=== PATIENT | female | born 1945 | race Caucasian/White ===

== ENCOUNTER 2018-07-11 09:48 | Emergency (ER) | payer MEDICARE, OTHER ==
[~2018-07-11] VITALS: Ht 167.6 cm; Wt 86.2 kg
[2018-07-11] MEDS ORDERED: LOSA25 PO (10:03)
[2018-07-11] MEDS ORDERED: METO25 PO (10:03)
[2018-07-11] MEDS ORDERED: Percocet 5-3251 EACH PO (14:42)
== END 2018-07-11 15:01 | disposition home or self-care (01) ==
LOC: ER 09:48
DX: S82.842A Displaced bimalleolar fracture of left lower leg, initial encounter for closed fracture (principal); W10.9XXA Fall (on) (from) unspecified stairs and steps, initial encounter; I10 Essential (primary) hypertension; Z88.2 Allergy status to sulfonamides; Z79.899 Other long term (current) drug therapy
CPT/HCPCS: 27810; 73590; 73600; 73610; 76000; 93005; 93010; 96374; 99152; 99284-25; J1170; J7030

== ENCOUNTER 2020-02-09 02:00 | Emergency (ER) | payer MEDICARE, OTHER ==
[~2020-02-09] VITALS: Ht 162.6 cm; Wt 90.7 kg
[~2020-02-09 02:00] MED LIST: LOSA25 PO; METO25 PO; Percocet 5-3251 EACH PO
[2020-02-09 02:41] LABS: Alanine Aminotransfer (ALT/SGP 30 U/L (12-78); Albumin/Globulin Ratio 1.2 (0.8-1.8); Alk Phos 77 U/L (50-136); Anion Gap 6 mmol/L (6-16); Aspartate Aminotrans (AST/SGOT 24 U/L (12-37); Bilirubin, Total 0.3 mg/dL (0.1-1.0); Blood Urea Nitrogen 20 mg/dL (8-24); Bun/Creatinine Ratio 34.2 (12.0-20.0); CO2, Blood 26 mmol/L (21-32); Calcium, Blood 9.7 mg/dL (8.5-10.1); Chloride, Blood 109 mmol/L (98-108); Creatinine, Blood 0.59 mg/dL (0.40-1.00); Globulin, Blood 3.4 g/dL (2.2-4.0); Glomerular Filtration Rate >60 (60-); Glucose, Blood 129 mg/dL (70-99); Potassium, Blood 4.2 mmol/L (3.5-5.5); Sodium, Blood 141 mmol/L (136-145); Total Protein, Blood 7.4 g/dL (6.4-8.2); Troponin I <0.015 ng/mL (0.000-0.040)
[2020-02-09 03:09] LABS: BASOPHILS ABSOLUTE AUTO 0.04 K/mm3 (0.00-0.23); BASOPHILS PERCENT AUTO 1 % (0-2); EOSINOPHILS ABSOLUTE AUTO 0.13 K/mm3 (0.00-0.68); EOSINOPHILS PERCENT AUTO 2 % (0-6); Hematocrit 41.6 % (33.0-51.0); Hemoglobin 13.4 g/dL (11.5-16.0); IMMATURE GRAN ABSOLUTE AUTO 0.02 K/mm3 (0.00-0.10); IMMATURE GRAN PERCENT AUTO 0 % (0-1); LYMPHOCYTES ABSOLUTE AUTO 1.51 K/mm3 (0.84-5.20); LYMPHOCYTES PERCENT AUTO 17 % (21-46); MONOCYTES ABSOLUTE AUTO 0.43 K/mm3 (0.16-1.47); MONOCYTES PERCENT AUTO 5 % (4-13); Mean Corpuscular HGB Conc 32.2 g/dL (31.5-36.5); Mean Corpuscular Volume 93 fL (80-100); Mean Platelet Volume 9.6 fL (9.1-12.4); NEUTROPHILS ABSOLUTE AUTO 6.55 K/mm3 (1.96-9.15); NEUTROPHILS PERCENT AUTO 75 % (41-73); Platelet Count 301 K/mm3 (150-400); RDW Coefficient Variation 12.5 % (11.7-14.2); RDW Standard Deviation 43.3 fL (35.1-46.3); Red Blood Cell Count 4.46 M/mm3 (3.80-5.20); White Blood Cell Count 8.68 K/mm3 (4.00-11.30)
== END 2020-02-09 03:49 | disposition home or self-care (01) ==
LOC: ER 02:00
PROVIDERS: Emergency Medicine
DX: I10 Essential (primary) hypertension (principal); Z88.2 Allergy status to sulfonamides; Z79.899 Other long term (current) drug therapy
CPT/HCPCS: 36415; 80053; 83690; 84484; 85025; 93005; 93010; 99283-25; A9270-GY

== ENCOUNTER 2020-04-13 09:40 | Observation (INO) | payer MEDICARE, OTHER ==
[~2020-04-13] VITALS: Ht 162.6 cm; Wt 88.5 kg
[2020-04-13 10:23] LABS: BASOPHILS ABSOLUTE AUTO 0.04 K/mm3 (0.00-0.23); BASOPHILS PERCENT AUTO 1 % (0-2); EOSINOPHILS ABSOLUTE AUTO 0.22 K/mm3 (0.00-0.68); EOSINOPHILS PERCENT AUTO 4 % (0-6); Hematocrit 43.8 % (33.0-51.0); IMMATURE GRAN ABSOLUTE AUTO 0.01 K/mm3 (0.00-0.10); IMMATURE GRAN PERCENT AUTO 0 % (0-1); LYMPHOCYTES ABSOLUTE AUTO 1.43 K/mm3 (0.84-5.20); LYMPHOCYTES PERCENT AUTO 25 % (21-46); MONOCYTES ABSOLUTE AUTO 0.44 K/mm3 (0.16-1.47); MONOCYTES PERCENT AUTO 8 % (4-13); Mean Corpuscular HGB 29.7 pg (26.0-34.0); Mean Corpuscular Volume 93 fL (80-100); Mean Platelet Volume 9.7 fL (9.1-12.4); NEUTROPHILS ABSOLUTE AUTO 3.48 K/mm3 (1.96-9.15); NEUTROPHILS PERCENT AUTO 62 % (41-73); Platelet Count 288 K/mm3 (150-400); Red Blood Cell Count 4.72 M/mm3 (3.80-5.20); White Blood Cell Count 5.62 K/mm3 (4.00-11.30)
[2020-04-13 10:40] LABS: Alanine Aminotransfer (ALT/SGP 33 U/L (12-78); Albumin, Blood 3.7 g/dL (3.4-5.0); Albumin/Globulin Ratio 1.1 (0.8-1.8); Alk Phos 79 U/L (50-136); Anion Gap 5 mmol/L (6-16); Aspartate Aminotrans (AST/SGOT 25 U/L (12-37); Bilirubin, Total 0.6 mg/dL (0.1-1.0); Blood Urea Nitrogen 18 mg/dL (8-24); Bun/Creatinine Ratio 28.3 (12.0-20.0); CO2, Blood 25 mmol/L (21-32); Chloride, Blood 107 mmol/L (98-108); Creatinine, Blood 0.64 mg/dL (0.40-1.00); Globulin, Blood 3.4 g/dL (2.2-4.0); Glomerular Filtration Rate >60 (60-); Glucose, Blood 124 mg/dL (70-99); Potassium, Blood 4.1 mmol/L (3.5-5.5); Sodium, Blood 137 mmol/L (136-145); Total Protein, Blood 7.1 g/dL (6.4-8.2); Troponin I <0.015 ng/mL (0.000-0.040)
[2020-04-13] MEDS ORDERED: EZETIMIBE10 MG PO (12:47)
[2020-04-13] MEDS ORDERED: ROSU5 PO (12:47)
[2020-04-13 13:06] LABS: CHOL/HDL RATIO 3.5; Cholesterol 163 mg/dL (50-200); HDL Cholesterol 47 mg/dL (>39); LDL/HDL RATIO 2.2; Low Density Lipoprotein Chol 104 mg/dL (0-110); Triglycerides 58 mg/dL (30-160); Very Low Density Lipoprot Chol 11 mg/dL (6-32)
--- NOTE | 2020-04-13 15:42 | NUR ---
PATIENT ORIENTED TO ROOM. ASSUMING CAERE OF PATIENT
--- NOTE | 2020-04-13 18:02 | NUR ---
PATIENT IS ALERT AND ORIENTED AND COOPERATIVE WITH CARE. NO CONPLAINTS OF CHEST PAIN SINCE ON MEDICAL FLOOR. PATIENT COMPLAINED OF A 2/10 HEADACHE, TREATED PER EMAR. TELE IS NSR AT 67 BPM. BP ON ARRIVAL WAS 157/70. NO NEW CONCERNS. PATIENT IS EATING HER DINNER AT THIS TIME. WILL CONTINUE TO MONITOR.
--- NOTE | 2020-04-14 05:56 | NUR ---
SHIFT SUMMARY A/O, ABLE TO MAKE NEEDS KNOWN. COOPERATIVE WITH CARE. CALLS AND ANSWERS QUESTIONS APPROPRIATELY. C/O HEADACHE THAT WAS NOTED TO BE PREDOMINATELY AT BACK OF NECK; RATED PAIN 4/10; MEDICATED PER EMAR. ALSO STATED FELT SHAKY AND THOUGHT THAT BP WAS ELEVATED AFTER RETURNING FROM BATHROOM. CHECKED AND RE-CHECKED VS DURING THIS TIME. BP ELEVATED X5 MINUTES AFTER RETURNING FROM BATHROOM. AT RE-CHECK BP SIGNIFICANTLY DOWN. STATED FOR THE PAST COUPLE OF MONTHS HAS HAD A DEEPER NAGGING DULL PAIN TO L NECK WHICH CONCERNS HER. TELE REMAINED NSR IN 70'S. APPEARED TO REST OFF AND ON. NO OTHER ACUTE CHANGES NOTED. BED REMAIN IN LOWEST POSITION. CALL LIGHT AND BELONGINGS WITHIN REACH. WCTM. REPORT TO ONCPARDEEP SANTANA.
[2020-04-14] MEDS ORDERED: METO25 PO (11:04)
[2020-04-14] MEDS ORDERED: ASPI81CH PO (11:05)
[2020-04-14] MEDS ORDERED: METFORMIN HCL500 MG PO (11:06)
[2020-04-14] MEDS ORDERED: NITR.6SL SL (11:07)
--- NOTE | 2020-04-14 11:42 | NUR ---
1125 PT TO DISCHARGE HOME. IV REMOVED PRIOR TO AND NO SS OF INFECTION NOTED. PT DRESSED HERSELF. NURSE EDUCATED PT REGARDING NEW MEDS. MEDS FAXED TO [facility] PER PT. PT HAS PCP AND LEGAL PRACTICE MANAGER OUT OF THE AREA. THIS NURSE ENCOURAGED PT TO FOLLOW UP WITH BOTH. PT WAS WHEELED OUT AND TOOK PT HOME.
== END 2020-04-14 11:23 | disposition home or self-care (01) ==
LOC: ER 09:40 → ERHOLD 11:40 → MEDS 15:35
PROVIDERS: Emergency Medicine; ADMIT Internal Medicine
DX: I16.0 Hypertensive urgency (principal); I25.10 Atherosclerotic heart disease of native coronary artery without angina pectoris; I10 Essential (primary) hypertension; K44.9 Diaphragmatic hernia without obstruction or gangrene; K21.9 Gastro-esophageal reflux disease without esophagitis; Z88.2 Allergy status to sulfonamides; Z79.899 Other long term (current) drug therapy; Z88.8 Allergy status to other drugs, medicaments and biological substances; Z79.82 Long term (current) use of aspirin
CPT/HCPCS: 36415; 71046; 80053; 80061; 83036; 83880; 84484; 85025; 93005; 93010; 96374; 96375; 99285-25; A9270; A9270-GY; G0378; J0360; J1200

== ENCOUNTER → 2023-02-27 | Outpatient (CLI) | payer MEDICARE, OTHER ==
[~2023-02-27] MED LIST changes: +ASPI81CH PO; +EZETIMIBE10 MG PO; +METFORMIN HCL500 MG PO; +NITR.6SL SL; +ROSU5 PO
== END | disposition home or self-care (01) ==
LOC: LAB SHORT 08:30 → LAB 08:30
DX: R30.0 Dysuria (principal)
CPT/HCPCS: 87077; 87086; 87186

== ENCOUNTER 2024-05-06 06:10 | Day surgery (SDC) | payer MEDICARE, OTHER ==
[~2024-05-06] VITALS: Ht 162.6 cm; Wt 88.2 kg
[~2024-05-06 06:10] MED LIST changes: +Balanced Salt Epinephrine Irrigation Solution 500 mL IR SCH; +Lidocaine HCl/Pf 1% 5 ML VIAL XX SCH; +Moxifloxacin HCL 0.5 MG/0.1 ML 0.4MLSYR LEFTEYE SCH; +NS 500 ML IV ONE; +PHENYLEPHRINE\\TROPICAMIDE\\TETRACAINE OPHTHALMIC DILATING SOLN LEFTEYE PRN; +Phenylephrine Frt 10% Opth (ORSC) ONE; +Povidone-Iodine 450 DROP/30 ML Solution LEFTEYE SCH; +Triamcinolone Inj Susp 40 MG / ML 1ML Vial INJ SCH
[2024-05-06] MEDS ORDERED: REPATHA SU140 MG/1 M SQ (06:31)
[2024-05-06] MEDS ORDERED: OMEP20ER (06:32)
--- NOTE | 2024-05-06 06:37 | NUR ---
05/06/24 0637 Pura Holloway AT 0628 PLEDGET AT [phone]
[2024-05-06] MEDS ORDERED: NS 500 ML IV ONE (06:40)
[2024-05-06] MEDS ORDERED: FentaNYL Citrate 50 MCG/ML 2 ML Injection ONE (06:54)
[2024-05-06] MEDS ORDERED: Midazolam HCl 1MG / ML 2ML Vial ONE (06:54)
[2024-05-06] MEDS ORDERED: Triamcinolone Inj Susp 40 MG / ML 1ML Vial ONE (06:57)
[2024-05-06] MEDS ORDERED: Lidocaine HCl/Pf 1% 5 ML VIAL ONE (07:00)
[2024-05-06] MEDS ORDERED: Glycopyrrolate 0.2 MG/ML 5ML VIAL ONE (07:33)
[2024-05-06] MEDS ORDERED: Tetracaine HCl 0.5% Opth Soln 15 ml LEFTEYE ONE (07:37)
[2024-05-06 07:56] VITALS: BP 133/66
== END 2024-05-06 08:12 | disposition home or self-care (01) ==
LOC: ORSCSDS 06:10
PROVIDERS: Ophthalmology
PROC: 08RK3JZ Replacement of Left Lens with Synthetic Substitute, Percutaneous Approach (ICD-10-PCS; principal; 2024-05-06 07:30)
DX: H25.812 Combined forms of age-related cataract, left eye (principal); I10 Essential (primary) hypertension; G47.33 Obstructive sleep apnea (adult) (pediatric); K21.9 Gastro-esophageal reflux disease without esophagitis; R73.03 Prediabetes; E66.9 Obesity, unspecified; Z68.33 Body mass index [BMI] 33.0-33.9, adult; Z79.899 Other long term (current) drug therapy
CPT/HCPCS: 82947; J2001; J2250; J3010; J3301; J7040; V2632

== ENCOUNTER 2024-05-13 06:08 | Day surgery (SDC) | payer MEDICARE, OTHER ==
[~2024-05-13] VITALS: Ht 162.6 cm; Wt 87.5 kg
[~2024-05-13 06:08] MED LIST changes: -Moxifloxacin HCL 0.5 MG/0.1 ML 0.4MLSYR LEFTEYE SCH; +Moxifloxacin HCL 0.5 MG/0.1 ML 0.4MLSYR RIGHTEYE SCH; -NS 500 ML IV ONE; +OMEP20ER; -PHENYLEPHRINE\\TROPICAMIDE\\TETRACAINE OPHTHALMIC DILATING SOLN LEFTEYE PRN; +PHENYLEPHRINE\\TROPICAMIDE\\TETRACAINE OPHTHALMIC DILATING SOLN RIGHTEYE PRN; -Phenylephrine Frt 10% Opth (ORSC) ONE; -Povidone-Iodine 450 DROP/30 ML Solution LEFTEYE SCH; +Povidone-Iodine 450 DROP/30 ML Solution RIGHTEYE SCH; +REPATHA SU140 MG/1 M SQ
[2024-05-13] MEDS ORDERED: Triamcinolone Inj Susp 40 MG / ML 1ML Vial ONE (06:40)
[2024-05-13] MEDS ORDERED: Lidocaine HCl/Pf 1% 5 ML VIAL ONE (06:40)
[2024-05-13] MEDS ORDERED: NS 500 ML IV ONE (06:46)
--- NOTE | 2024-05-13 06:49 | NUR ---
05/13/24 0649 Rina Brody RIGHT EYE: TETRACAINE AT 0637. PLEDGET AT 0638. PT TOLERATED WELL. CALL LIGHT WITHIN REACH.
[2024-05-13] MEDS ORDERED: FentaNYL Citrate 50 MCG/ML 2 ML Injection ONE (07:31)
[2024-05-13] MEDS ORDERED: Midazolam HCl 1MG / ML 2ML Vial ONE (07:31)
[2024-05-13] MEDS ORDERED: Glycopyrrolate 0.2 MG/ML 5ML VIAL ONE (07:38)
[2024-05-13 08:00] VITALS: BP 138/62
== END 2024-05-13 08:22 | disposition home or self-care (01) ==
LOC: ORSCSDS 06:08
PROVIDERS: Ophthalmology
PROC: 08RJ3JZ Replacement of Right Lens with Synthetic Substitute, Percutaneous Approach (ICD-10-PCS; principal; 2024-05-13 07:30)
DX: E11.36 Type 2 diabetes mellitus with diabetic cataract (principal); H25.11 Age-related nuclear cataract, right eye; Z96.1 Presence of intraocular lens; I10 Essential (primary) hypertension; E78.5 Hyperlipidemia, unspecified; G47.33 Obstructive sleep apnea (adult) (pediatric); K21.9 Gastro-esophageal reflux disease without esophagitis; E66.9 Obesity, unspecified; Z68.33 Body mass index [BMI] 33.0-33.9, adult; Z79.899 Other long term (current) drug therapy
CPT/HCPCS: 82947; J2001; J2250; J3010; J3301; V2632